=== PATIENT | male | born 1955 | race Caucasian/White ===

== ENCOUNTER 2017-12-28 08:19 | Observation (INO) | payer OTHER ==
[~2017-12-28] VITALS: Ht 172.7 cm; Wt 80.7 kg
--- NOTE | 2017-12-28 08:40 | ED NECK/BACK PAIN COMPLAINT ---
History of Present Illness General Chief Complaint: Low Back Pain/Injury Stated Complaint: SCIATIC PAIN Source: patient Exam Limitations: no limitations Vital Signs & Intake/Output Vital Signs & Intake/Output Vital Signs Date Time Temp Pulse Resp B/P B/P Pulse O2 O2 Flow FiO2 Mean Ox Delivery Rate 12/28 1607 98.3 78 18 126/64 95 Room Air 12/28 1311 98.8 66 17 132/72 99 Room Air 12/28 0824 98.3 65 18 146/86 98 Room Air Allergies Coded Allergies: NO KNOWN ALLERGIES (12/28/17) Reconcile Medications Atorvastatin Calcium 10 MG TABLET 1 TAB PO DAILY cholesterol (Reported) Lisinopril 5 MG TABLET 1 TAB PO DAILY heart (Reported) Triage Note: 62 YO MALE BIBA FROM HOME. PT STATES HE SLIPPED ON ICE 2 DAYS AGO AND NOW HAS PAIN TO R BUTTOCKS RADIATING DOWN R LEG. STATES HE TRIED TO TAKE 800MG MOTRIN WITHOUT RELIEF. DENIES HEADSTRIKE. DENIES LOC. STATES HE WAS ABLE TO WALK ON IT A DAY AGO BUT IT HAS BEEN GETTING PROGRESSIVELY WORSE. Triage Nurses Notes Reviewed? yes Onset: Abrupt Duration: getting worse Timing: recent history Radiation: buttocks Method of Injury: fall, twisted HPI: Patient is a 62-year-old male with a past medical history of hypertension who presents emergency room for concerns of a slip and fall on ice while in the standing position 3 DAYS AGO, where he states he fell to ground to the right lateral hip region, patient denies any preceding episode of lightheaded sensation or dizziness denies any head strike or neck pain states that he was able to ambulate after the event however since the event he's been complaining of gradually worsening right gluteal pain where he states that yesterday evening and today the pain was too severe to get out of bed. Patient has been taking ibuprofen with minimal relief of symptoms. Denies any extremity paresthesia bowel or bladder incontinence or saddle paresthesia abdominal pain or neck pain. Patient was brought in by ambulance due to his pain (Loyd Keating) Past History Travel History Traveled to [place] past 21 day No Medical History Any Pertinent Medical History? see below for history Neurological: NONE EENT: NONE Cardiovascular: hypertension Respiratory: NONE Gastrointestinal: NONE Hepatic: NONE Renal: NONE Musculoskeletal: NONE Psychiatric: NONE Endocrine: NONE Blood Disorders: NONE Cancer(s): NONE PRODUCTION CONTROL ANALYST/Reproductive: NONE Surgical History Surgical History: non-contributory Psychosocial History What is your primary language Mexican Tobacco Use: Never used Family History Hx Contributory? No (Loyd Keating) Review of Systems Review of Systems Constitutional: Reports: no symptoms. Eyes: Reports: no symptoms. Ears, Nose, Throat, Mouth: Reports: no symptoms. Respiratory: Reports: no symptoms. Cardiovascular: Reports: no symptoms. Gastrointestinal/Abdominal: Reports: no symptoms. Musculoskeletal: Reports: see HPI, back pain. Skin: Reports: no symptoms. Neurological/Psychological: Reports: see HPI. All Other Systems: Reviewed and Negative (Loyd Keating) Physical Exam Physical Exam General Appearance: mild distress Head: atraumatic Eyes: Bilateral: normal appearance. Ears, Nose, Throat, Mouth: hearing grossly normal Neck: normal inspection, supple, no midline tenderness Respiratory: no respiratory distress Gastrointestinal: normal bowel sounds, soft, non-tender Straight Leg Raising: Right: Pain at ____ degrees (45). Left: Pain at ____ degrees (45). Neurologic/Psych: no motor/sensory deficits, awake, alert Skin: intact, normal color Comments: Right hip noted posterior gluteal point tenderness Patient able to perform straight leg raise Right knee and ankle nontender full active range of motion Right leg dermatomes intact DTRs intact Left hip straight leg raise performed with pain to the contralateral RIGHT gluteal region Core Measures CVA/TIA Diagnosis: No (Loyd Keating) Progress Differential Diagnosis: C spine injury, carotid dissection, cauda equina syn, herniated disc, myofascial strain, pyelo/UTI, sciatica, spinal cord inj, thoracic outlet syn, T/L spine injury, ureterolithiasis Plan of Care: Orders Procedure Date/time Status Regular Diet 12/29 B Active OXYGEN SETUP (GEN) 12/28 161 Active Saline Lock 12/[address] in observation 12/28 1618 Active Vital Signs 12/28 1618 Active Activity/Ambulation 12/28 1618 Active Code Status 12/28 1618 Active Patient Data 12/28 1616 Active PT Evaluate & Treat 12/28 1414 Active URINALYSIS 12/28 1158 Complete COMPREHENSIVE METABOLIC PANEL 12/28 1158 Complete CBC WITHOUT DIFFERENTIAL 12/28 1158 Complete Current Medications Sig/Velma Start time Last Medication Dose Stop Time Status Admin Hydromorphone HCl 1 MG ONCE ONE 12/28 1200 CAN (Dilaudid) 12/28 1201 Morphine Sulfate 6 MG ONCE ONE 12/28 0945 CAN (MORPHINE SULFATE) 12/28 0946 Laboratory Tests 12/28/17 1235: Urine Color YEL, Urine Clarity CLEAR, Urine pH 6.0, Ur Specific Brewster <= 1.005 , Urine Protein NEG, Urine Ketones NEG, Urine Nitrite NEG, Urine Bilirubin NEG, Urine Urobilinogen 0.2, Ur Leukocyte Esterase NEG, Ur Microscopic EXAM NOT REQUIRED, Urine Hemoglobin NEG, Urine Glucose NEG 12/28/17 1230: Anion Gap 15, Estimated GFR > 60, BUN/Creatinine Ratio 16.7, Glucose 130 H, Calcium 10.0, Total Bilirubin 1.9 H, AST 18, ALT 11 L, Alkaline Phosphatase 76 , Total Protein 7.0, Albumin 4.4, Globulin 2.6, Albumin/Globulin Ratio 1.7, CBC w Diff NO MAN DIFF REQ, RBC 5.17, MCV 91.7, MCH 30.7, MCHC 33.5, RDW 12.4, MPV 8.4, Gran % 90.4 H, Lymphocytes % 7.5 L, Monocytes % 1.4 L, Eosinophils % 0.5 , Basophils % 0.2, Absolute Granulocytes 8.9 H, Absolute Lymphocytes 0.7 L, Absolute Monocytes 0.1, Absolute Eosinophils 0, Absolute Basophils 0 Patient had negative lumbar spine x-rays and there is no suspicion of fracture of the hips due to patient being well to tolerate weightbearing activities after the event and able to perform straight leg raise, DTRs present illness and exam findings patient has consideration of sciatica and musculoskeletal pain. Patient was neurovascularly intact to bilateral lower extremities 1020 patient was reevaluated and the patient tried to ambulate however he was too painful to get up out of bed for more milligrams of morphine were administered- 1208 after second dosing of morphine patient was still unable to get up out of bed due to severe pain to the right localized gluteal region. X-ray will be obtained blood work will be obtained. Patient will receive Dilaudid and Toradol. Although it is of my differential diagnosis of spinal abscess or discitis patient denies any IV drug use and is only complaining of right gluteal pain Patient after given by mouth Dilaudid still had no improvement of pain patient was able to sit up however due to severe pain he was unable to ambulate, MRI was administered patient has unremarkable blood work. I discussed MRI results with patient for concerns of herniated L4-L5 and L5-S1. No concerns of discitis or abscess. Due to multiple narcotic administrations and pain treatments he has intractable pain and cannot ambulate in which she is a significant fall risk, patient may require short-term rehabilitation. Diagnostic Imaging: Viewed by Me: Radiology Read, MRI. Radiology Impression: no fracture Comments: PATIENT: DEV RODRIGUEZ PRESENT AGE: 62 PATIENT ACCOUNT NO: [id number] : 53 LOCATION: [facility] ORDERING PHYSICIAN: Loyd DOMINGUEZ SERVICE DATE: 12/28/17 EXAM TYPE: MRI - MRI-LUMBAR SPINE MR LUMBAR SPINE WITHOUT IV CONTRAST CLINICAL INFORMATION: Unable to ambulate due to right gluteal pain. COMPARISON: Lumbar spine radiographs and hip radiographs performed earlier the same day. TECHNIQUE: MRI of the lumbar spine without contrast was obtained using routine sequences. FINDINGS: There are 5 nonrib-bearing lumbar-type vertebral bodies. There is mild grade 1 degenerative anterolisthesis of L2 on L3. Lumbar alignment is otherwise maintained. The vertebral body heights are preserved. There is moderate disc volume loss at L3-L4, L4-L5, and L5-S1. Disc desiccation at all lumbar levels with the exception of L1 on L2. There are Modic type I endplate signal changes at L4-L5. No additional bone marrow edema. No acute fractures. Conus terminates at the L1 level. No significant soft tissue findings. L1-L2: Disc contour is normal. No central canal stenosis and no foraminal stenosis. L2-L3: There is grade 1 degenerative anterolisthesis in the setting of moderate bilateral hypertrophic facet arthropathy. Mild narrowing of the central canal which remains patent. No significant foraminal stenosis. L3-L4: There is a diffuse annular disc bulge and there is moderate bilateral hypertrophic facet arthropathy. No significant central canal stenosis and no significant foraminal stenosis. L4-L5: There is a background annular disc bulge with a superimposed right paracentral disc protrusion that compresses the traversing right L5 nerve root within the right subarticular zone and there is moderate bilateral hypertrophic facet arthropathy. Findings in concert result in moderate central canal stenosis. L5-S1: There is a shallow central disc protrusion and there is severe bilateral hypertrophic facet arthropathy. Findings result in left subarticular zone stenosis with mild mass effect on the traversing left S1 nerve root. The central canal is patent. Far right lateral disc osteophyte protrusion likely contacts the extraforaminal right L5 nerve root. IMPRESSION: - At L4-L5, there is a right paracentral disc protrusion that compresses the traversing right L5 nerve root within the right subarticular zone and multifactorial degenerative changes result in moderate central canal stenosis. - At L5-S1, there is a shallow central disc protrusion that results in mild mass effect on the traversing left S1 nerve root and there is a far right lateral disc osteophyte protrusion that likely contacts the extraforaminal right L5 nerve root. - At L2-L3, there is grade 1 degenerative anterolisthesis in the setting of moderate bilateral hypertrophic facet arthropathy. No significant central canal stenosis nor significant foraminal stenosis at this level. DICTATED BY: Sunil Duran MD DATE/TIME DICTATED:12/28/171499 DESIGN ENGINEER:TYRA PATIENT: DEV RODRIGUEZ PRESENT AGE: 62 PATIENT ACCOUNT NO: [id number] : 53 LOCATION: [facility] ORDERING PHYSICIAN: Loyd DOMINGUEZ SERVICE DATE: 12/28/17 EXAM TYPE: RAD - XRY-HIP 2-3 VIEWS, RIGHT EXAMINATION: XR HIP, RIGHT CLINICAL INFORMATION: Right hip pain. COMPARISON: None TECHNIQUE: Two views of the right hip. FINDINGS: No fracture or dislocation. The right femoral head is well situated within the acetabulum. Normal hypertrophic changes without significant cartilage space narrowing. Partially visualized L5-S1 disc space narrowing. IMPRESSION: No acute osseous abnormalities. DICTATED BY: Joel Ochoa MD DATE/TIME DICTATED:12/28/171304 DESIGN ENGINEER:TYRA DATE/TIME TRANSCRIBED:12/28/17 / PATIENT: DEV RODRIGUEZ PRESENT AGE: 62 PATIENT ACCOUNT NO: [id number] : 53 LOCATION: ER ORDERING PHYSICIAN: Loyd DOMINGUEZ SERVICE DATE: 12/28/17 EXAM TYPE: RAD - XRY-LUMBOSACRAL SPINE 4 VIEWS EXAMINATION: XR LUMBOSACRAL SPINE CLINICAL INFORMATION: Lower back pain after fall 2 days ago. COMPARISON: None TECHNIQUE: 4 views of the lumbosacral spine were obtained. FINDINGS: No evidence of acute fracture or traumatic subluxation within the degenerated spine. Multilevel facet arthropathy. There is 0.3 cm of degenerative anterolisthesis at L2-L3. The posterior elements of L2 appear intact. There is degenerative disc space narrowing and osteophyte formation of L3-L4, L4-L5 and L5-S1. The disc space narrowing is moderate at L3-L4 and L4-L5 and [id number] at L5-S1 Degenerative subarticular sclerosis/osteophytosis at the sacroiliac joints. Atherosclerotic calcification of the aorta. Multiple phleboliths within the lower pelvis. IMPRESSION: 1. No acute findings within the lumbosacral spine. 2. Multilevel facet osteoarthritis and mild, grade 1 anterolisthesis at L2-L3. 3. 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 DICTATED BY: Andrzej Rider MD DATE/TIME DICTATED:12/28/17913 DESIGN ENGINEER:TYRA DATE/TIME TRANSCRIBED:12/28/17913 (Loyd Keating) Departure Departure Disposition: STILL A PATIENT Condition: Stable Clinical Impression Primary Impression: Intractable pain Secondary Impressions: Herniated nucleus pulposus, lumbar, Inability to ambulate due to right hip, Sciatica of right side Referrals: Cheryl Nayak MD (PCP/Family) Departure Forms: Customer Survey General Discharge Information Observation Note Spoke With: Heath Ridley MD Physician Advisor Notified: SUNIL GUO DO Place Patient In: Non-ED OBS Care Area Rationale for Observation: My rational for observation is as follows [patient requires physical therapy consultation, pain control, and possible short-term rehabilitation due to inability to ablate due to intractable pain and lumbar radiculopathy patient has a significant fall risk if discharged]. (Loyd Keating) PA/CLASS B TRUCK DRIVER Co-Sign Statement Statement: ED Attending supervision documentation- x I saw and evaluated the patient. I have also reviewed all the pertinent lab results and diagnostic results. I agree with the findings and the plan of care as documented in the PA's/[employer] B TRUCK DRIVER's documentation. Intractable sciatica [] I have reviewed the ED Record and agree with the PA's/[employer] B TRUCK DRIVER's documentation. [] Additions or exceptions (if any) to the PAs/CLASS B TRUCK DRIVER's note and plan are summarized below: [] (Teresa JEAN,Cristian)
--- NOTE | 2017-12-28 09:23 | RADIOLOGY REPORT ---
EXAMINATION: XR LUMBOSACRAL SPINE CLINICAL INFORMATION: Lower back pain after fall 2 days ago. COMPARISON: None TECHNIQUE: 4 views of the lumbosacral spine were obtained. FINDINGS: No evidence of acute fracture or traumatic subluxation within the degenerated spine. Multilevel facet arthropathy. There is 0.3 cm of degenerative anterolisthesis at L2-L3. The posterior elements of L2 appear intact. There is degenerative disc space narrowing and osteophyte formation of L3-L4, L4-L5 and L5-S1. The disc space narrowing is moderate at L3-L4 and L4-L5 and [id number] at L5-S1 Degenerative subarticular sclerosis/osteophytosis at the sacroiliac joints. Atherosclerotic calcification of the aorta. Multiple phleboliths within the lower pelvis. IMPRESSION: 1. No acute findings within the lumbosacral spine. 2. Multilevel facet osteoarthritis and mild, grade 1 anterolisthesis at L2-L3. 3. 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
[2017-12-28] MEDS ORDERED: LISINOPRIL5 M1 PO (10:11)
[2017-12-28] MEDS ORDERED: ATORVASTATIN CA10 M1 PO (10:11)
[2017-12-28 12:59] LABS: ABSOLUTE BASOPHIL COUNT 0 /CUMM (0.0-0.2); ABSOLUTE EOSINOPHIL COUNT 0 /CUMM (0.0-0.7); ABSOLUTE GRANULOCYTE CT 8.9 /CUMM (1.4-6.5); ABSOLUTE LYMPH COUNT 0.7 /CUMM (1.2-3.4); ABSOLUTE MONOCYTE COUNT 0.1 /CUMM (0.10-0.60); BASOPHIL % 0.2 % (0.0-2.0); EOSINOPHIL % 0.5 % (0-5); HEMATOCRIT 47.4 % (42-52); MEAN CORPUSCULAR HGB 30.7 PG (27.0-31.0); MEAN CORPUSCULAR HGB CONC 33.5 G/DL (33.0-37.0); MEAN CORPUSCULAR VOLUME 91.7 FL (80.0-94.0); MEAN PLATELET VOLUME 8.4 FL (7.4-10.4); PLATELET COUNT 297 /CUMM (130-400); RBC DISTRIBUTION WIDTH 12.4 % (11.5-14.5); RED BLOOD CELL CT 5.17 /CUMM (4.70-6.10); WHITE BLOOD CELL COUNT 9.8 /CUMM (4.8-10.8)
--- NOTE | 2017-12-28 13:10 | RADIOLOGY REPORT ---
EXAMINATION: XR HIP, RIGHT CLINICAL INFORMATION: Right hip pain. COMPARISON: None TECHNIQUE: Two views of the right hip. FINDINGS: No fracture or dislocation. The right femoral head is well situated within the acetabulum. Normal hypertrophic changes without significant cartilage space narrowing. Partially visualized L5-S1 disc space narrowing. IMPRESSION: No acute osseous abnormalities.
[2017-12-28 13:14] LABS: GRANULOCYTE % 90.4 % (42.2-75.2)
--- NOTE | 2017-12-28 15:19 | MRI REPORT ---
MR LUMBAR SPINE WITHOUT IV CONTRAST CLINICAL INFORMATION: Unable to ambulate due to right gluteal pain. COMPARISON: Lumbar spine radiographs and hip radiographs performed earlier the same day. TECHNIQUE: MRI of the lumbar spine without contrast was obtained using routine sequences. FINDINGS: There are 5 nonrib-bearing lumbar-type vertebral bodies. There is mild grade 1 degenerative anterolisthesis of L2 on L3. Lumbar alignment is otherwise maintained. The vertebral body heights are preserved. There is moderate disc volume loss at L3-L4, L4-L5, and L5-S1. Disc desiccation at all lumbar levels with the exception of L1 on L2. There are Modic type I endplate signal changes at L4-L5. No additional bone marrow edema. No acute fractures. Conus terminates at the L1 level. No significant soft tissue findings. L1-L2: Disc contour is normal. No central canal stenosis and no foraminal stenosis. L2-L3: There is grade 1 degenerative anterolisthesis in the setting of moderate bilateral hypertrophic facet arthropathy. Mild narrowing of the central canal which remains patent. No significant foraminal stenosis. L3-L4: There is a diffuse annular disc bulge and there is moderate bilateral hypertrophic facet arthropathy. No significant central canal stenosis and no significant foraminal stenosis. L4-L5: There is a background annular disc bulge with a superimposed right paracentral disc protrusion that compresses the traversing right L5 nerve root within the right subarticular zone and there is moderate bilateral hypertrophic facet arthropathy. Findings in concert result in moderate central canal stenosis. L5-S1: There is a shallow central disc protrusion and there is severe bilateral hypertrophic facet arthropathy. Findings result in left subarticular zone stenosis with mild mass effect on the traversing left S1 nerve root. The central canal is patent. Far right lateral disc osteophyte protrusion likely contacts the extraforaminal right L5 nerve root. IMPRESSION: - At L4-L5, there is a right paracentral disc protrusion that compresses the traversing right L5 nerve root within the right subarticular zone and multifactorial degenerative changes result in moderate central canal stenosis. - At L5-S1, there is a shallow central disc protrusion that results in mild mass effect on the traversing left S1 nerve root and there is a far right lateral disc osteophyte protrusion that likely contacts the extraforaminal right L5 nerve root. - At L2-L3, there is grade 1 degenerative anterolisthesis in the setting of moderate bilateral hypertrophic facet arthropathy. No significant central canal stenosis nor significant foraminal stenosis at this level.
--- NOTE | 2017-12-28 16:47 | History & Physical ---
Dragan JEAN,[facility] 12/28/17 0336: General Information and HPI MD Statement: I have seen and personally examined DEV RODRIGUEZ and documented this H&P. The patient is a 62 year old M who presented with a patient stated chief complaint of [severe back pain]. Source of Information: patient Exam Limitations: no limitations History of Present Illness: 62-year-old male with a past medical history of hypertension, hyperlipidemia who was BIBA to the ED for evaluation of right hip and back pain. According to the patient around 3 days ago he tripped and fell on ice and landed on his right hip. He denies any symptoms of lightheadedness, dizziness, chest pain, palpitations or any other associated symptoms prior to the fall. Denies hitting his head. Since the fall he has been experiencing progressively worsening pain of his right hip that radiates to his groin. He describes his pain as a piercing knife like, 13/10 in severity, aggravated with movement, relieved with lying in a stationary position, associated with some numbess in his right buttock. He has taken OTC ibuprofen (4 tablets, three times a day) without any significant relief in symptoms. He states that last night he was unable to get out of his bed due to severe pain. His pain seems to be also aggravated with raising his left leg. He mentions that 15-18 years ago he had problems with his back. He saw a doctor back then who prescribed him some pain meds and told him to do some exercises which resolved his pain. Allergies/Medications Allergies: Coded Allergies: NO KNOWN ALLERGIES (12/28/17) Home Med list Atorvastatin Calcium 10 MG TABLET 1 TAB PO DAILY cholesterol (Reported) Cyclobenzaprine HCl 5 MG TABLET 1 TAB PO Q8P Muscle Pain Cyclobenzaprine HCl 5 MG TABLET 1 TAB PO Q8P Muscle Pain Diclofenac Potassium 50 MG TABLET 1 TAB PO TIDPRN Back Pain Lisinopril 5 MG TABLET 1 TAB PO DAILY heart (Reported) Past History Travel History Traveled to [place] past 21 day No Medical History Neurological: NONE EENT: NONE Cardiovascular: hypertension Respiratory: NONE Gastrointestinal: NONE Hepatic: NONE Renal: NONE Musculoskeletal: NONE Psychiatric: NONE Endocrine: NONE Blood Disorders: NONE Cancer(s): NONE 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 EENTM: Reports: no symptoms. Cardiovascular: Denies: chest pain, palpitations. Respiratory: Denies: short of breath. GI: Reports: no symptoms. Genitourinary: Reports: no symptoms. Musculoskeletal: Reports: back pain, joint pain, muscle pain. Skin: Reports: no symptoms. Neurological/Psychological: Reports: numbness. Denies: paresthesia, tingling. Exam & Diagnostic Data Last 24 Hrs of Vital Signs/I&O Vital Signs Date Time Temp Pulse Resp B/P B/P Pulse O2 O2 Flow FiO2 Mean Ox Delivery Rate 12/28 1607 98.3 78 18 126/64 95 Room Air 12/28 1311 98.8 66 17 132/72 99 Room Air 12/28 0824 98.3 65 18 146/86 98 Room Air Intake & Output 12/28 1600 12/28 0800 12/28 0000 Intake Total 0 Output Total Balance 0 Intake, Oral 0 Patient 170 lb Weight Weight Reported by Patient Measurement Method Physical Exam General Appearance Alert, Oriented X3, Cooperative, Mild Distress Skin rash on right knee Skin Temp/Moisture Exam: Warm/Dry HEENT Atraumatic Cardiovascular Normal S1, Normal S2, No Murmurs Lungs Clear to Auscultation, Normal Air Movement Abdomen Soft, No Tenderness Neurological Normal Speech, Strength at 5/5 X4 Ext, Normal Tone, Sensation Intact, Reflexes 2+ Extremities No Edema Rectal No Fissures, No Hemorrhoids Diagnostic Data Other Results - At L4-L5, there is a right paracentral disc protrusion that compresses the traversing right L5 nerve root within the right subarticular zone and multifactorial degenerative changes result in moderate central canal stenosis. - At L5-S1, there is a shallow central disc protrusion that results in mild mass effect on the traversing left S1 nerve root and there is a far right lateral disc osteophyte protrusion that likely contacts the extraforaminal right L5 nerve root. - At L2-L3, there is grade 1 degenerative anterolisthesis in the setting of moderate bilateral hypertrophic facet arthropathy. No significant central canal stenosis nor significant foraminal stenosis at this level. Assessment/Plan Assessment: 62-year-old male with a past medical history of hypertension, hyperlipidemia who was BIBA to the ED for evaluation of right hip and back pain. Assessment: 1. Mechanical Fall 2. Right L5 nerve root compression secondary to right paracentral disc protrusion 3. History of Hypertension and Hyperlipidemia 4. Elevated total bilirubin Plan: * Admit to the general medicine floor. * Pain control with diclofenac mild, moderate with percocet and severe with IV morphine. * PT eval in am. * Diazepam 5mg TID to relieve muscular spasms. * His total bilirubin is elevated. Unclear at this time. Will repeat his labs at a later time to trend. * Continue home medications: Lisinopril and Atorvastatin * Diet: Regular * DVT Prophylaxis: SC Lovenox * Code: Full Code As Ranked By This Provider Problem List: 1. Intractable pain Observation Initial Note - I have personally examined DEV RODRIGUEZ on 12/29/17 at 0829. The disposition of DEV RODRIGUEZ is uncertain at this time and before a determination can be made, he requires a period of observation for the following reasons [] Core Measures/Misc (06/28) Acute Coronary Syndrome ACS Diagnosis: No Congestive Heart Failure Congestive Heart Failure Diagnosis No Cerebrovascular Accident CVA/TIA Diagnosis: No VTE (View Protocol) VTE Risk Factors Age>40 No Mechanical VTE Prophylaxis d/t N/A MechProphylax Ordered No VTE Pharm Prophylaxis d/t NA PharmProphylax ordered Sepsis (View protocol) Sepsis Present: No RidleyShanice rojasnubia 12/28/17 1655: Attending MD Review Statement Attending Statement Attending MD Statement: examined this patient, discuss w/resident/PA/CREPE BOX TENDER, agreed w/resident/PA/CREPE BOX TENDER, discussed with family, reviewed EMR data (avail), discussed with case mgmt Attending Assessment/Plan: Pt seen and examined in the ER. D/w pt and his daughters at bedside the care plan. Pt being placed in observation for acute back pain that started after he slipped and fell on ice 3 days ago . pt started having rt hip pain and it got worse to the point where he was unable to ambulate. Pt was brought to the ER and was given morphine iv and dilaudid po without much relief. Pt had Lumbar Spine MRI done which showed some disc protrusion with L5 nerve root compression. Xrays done of the hip showed no fractures. Pt at baseline is an active adult and does have h/o rt side sciatica. He says last time it acted up was 1 year ago and he routinely does not use any pain meds. We will observe the patinet on genMaximus and will start him on muscle relaxants and pain meds. Will put him on flexeril 5 mg tid and will start him on morphine iv prn for pain control. Will get PT consult and see how he does. Oliverio JEAN,[facility] 12/28/17 1731: Resident Review Statement Resident Statement: examined this patient, discussed with spring internship, agreed with spring internship Other Findings: The patient is a 62-year-old man with a past medical history of hypertension, hyperlipidemia and sciatica backpain 15 years ago who was BIBA to the ED for evaluation of right hip and back pain. Patient slipped on ice 3 days ago and fell on ice landing on his right hip. He denies any preceding chest pain or lightheadedness, his pain is knife-like, progressively worsening and radiates down the back of his leg to the foot and also anteriorly to the left hip and aggravated by movements. No relief with OTC ibuprofen. No bowel or urinary incontinence. No limb weakness or abnormal sensation. He mentions that 15-18 years ago he had problems with his back. He saw a doctor back then who prescribed him some pain meds and told him to do some exercises which resolved his pain. Labs at admission unremarkable apart from total bilirubin of 1.9 and glucose 130 mg/dl. Imaging on admission: MRI lumbar spine shows L4-L5-S1 nerve root compression.L2-L3, grade 1 degenerative anterolisthesis in the setting of moderate bilateral hypertrophic facet arthropathy. No significant central canal stenosis nor significant foraminal stenosis at this level. Physical exam at presentation General Appearance Alert, Oriented X3, Cooperative, Mild Distress Skin rash on right knee Skin Temp/Moisture Exam: Warm/Dry HEENT Atraumatic Cardiovascular Normal S1, Normal S2, No Murmurs Lungs Clear to Auscultation, Normal Air Movement Abdomen Soft, No Tenderness Neurological Normal Speech, Strength at 5/5 X4 Ext, Normal Tone, Sensation Intact, Reflexes 2+ in all limbs Extremities No Edema Rectal: Normal rectal tone, no Fissures, No Hemorrhoids Assessment 1. Lumbar spinal radiculopathy 2. Hypertension 3. Hyperbilirubinemia Plan * Place in observation in Gen Med * PO diclofenac 50 mg Q 8 hrs, PO Percocet 1 tab PO Q 6 hrs prn * IV morphine 4 mg Q 4 hrs prn for severe pain * PO diazepam 5 mg PO TID * PT consult in AM * Fractionate bilirubin and trend * add on Hba1c * Continue home medication lisinopril 5 mg daily * SC lovenox 40 mg daily * Patient is full code
--- NOTE | 2017-12-28 18:38 | PN- Student ---
Subjective Subjective: Patient is a 62 y/o male who was brought in for the evaluation of severe back pain. 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 Roughly three days ago, patient sustained a fall on some frozen steps landing on his right hip. Around 11pm that night patient has been experiencing worsening pain that radiates to his groin/buttock. Patient reports his pain 13/10 with a stabbing quality. Condition is exacerbated with movement, or when raising his left leg. In addition, his pain is relieved when lying still. Patient has also taken Motrin & Ibuprofen without any improvement. Patient denies hitting his head, shortness of breath or chest pain. In addition, roughly 15-18 years ago, patient had a problem with his back, however saw a Doctor and his symptoms dissipated. 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 EENTM: Reports: no symptoms. Cardiovascular: Denies: chest pain, palpitations. Respiratory: Denies: short of breath. GI: Reports: no symptoms. Genitourinary: Reports: no symptoms. Musculoskeletal: Reports: back pain, joint pain, muscle pain. Skin: Reports: no symptoms. Neurological/Psychological: Reports: numbness. Denies: paresthesia, tingling. Objective Results Results: Vital Signs Date Time Temp Pulse Resp B/P B/P Pulse O2 O2 Flow FiO2 Mean Ox Delivery Rate 12/29 0521 97.7 73 20 128/70 95 Room Air 12/28 2232 97.9 90 20 100/80 95 Room Air 12/28 1607 98.3 78 18 126/64 95 Room Air 12/28 1311 98.8 66 17 132/72 99 Room Air Laboratory Tests 12/28/17 1235: Urine Color YEL, Urine Clarity CLEAR, Urine pH 6.0, Ur Specific [place] <= 1.005 , Urine Protein NEG, Urine Ketones NEG, Urine Nitrite NEG, Urine Bilirubin NEG, Urine Urobilinogen 0.2, Ur Leukocyte Esterase NEG, Ur Microscopic EXAM NOT REQUIRED, Urine Hemoglobin NEG, Urine Glucose NEG 12/28/17 1230: Anion Gap 15, Estimated GFR > 60, BUN/Creatinine Ratio 16.7, Glucose 130 H, Hemoglobin A1c 5.0, Calcium 10.0, Total Bilirubin 1.9 H, AST 18, ALT 11 L, Alkaline Phosphatase 76, Total Protein 7.0, Albumin 4.4, Globulin 2.6, Albumin/ Globulin Ratio 1.7, CBC w Diff NO MAN DIFF REQ, RBC 5.17, MCV 91.7, MCH 30.7, MCHC 33.5, RDW 12.4, MPV 8.4, Gran % 90.4 H, Lymphocytes % 7.5 L, Monocytes % 1.4 L, Eosinophils % 0.5, Basophils % 0.2, Absolute Granulocytes 8.9 H, Absolute Lymphocytes 0.7 L, Absolute Monocytes 0.1, Absolute Eosinophils 0, Absolute Basophils 0 Physical Exam General Appearance Alert, Oriented X3, Cooperative, Mild Distress Skin rash on right knee Skin Temp/Moisture Exam: Warm/Dry HEENT Atraumatic Cardiovascular Normal S1, Normal S2, No Murmurs Lungs Clear to Auscultation, Normal Air Movement Abdomen Soft, No Tenderness Neurological Normal Speech, Strength at 5/5 X4 Ext, Normal Tone, Sensation Intact, Reflexes 2+ Extremities No Edema Rectal No Fissures, No Hemorrhoids Diagnostic Data Other Results - At L4-L5, there is a right paracentral disc protrusion that compresses the traversing right L5 nerve root within the right subarticular zone and multifactorial degenerative changes result in moderate central canal stenosis. - At L5-S1, there is a shallow central disc protrusion that results in mild mass effect on the traversing left S1 nerve root and there is a far right lateral disc osteophyte protrusion that likely contacts the extraforaminal right L5 nerve root. - At L2-L3, there is grade 1 degenerative anterolisthesis in the setting of moderate bilateral hypertrophic facet arthropathy. No significant central canal stenosis nor significant foraminal stenosis at this level. Assessment/Plan Assessment: Patient is a 62 y/o male who was brought in for the evaluation of severe back pain. Plan: -Will admit patient to general medicine floor. -Offer pain medications for management of pain. IV morphone, percocet and diclofenac. -Diazepam, Lisinopril and Atorvastatin -Patient is a full code
[2017-12-28 22:32] VITALS: BP 100/80
[2017-12-29 05:21] VITALS: BP 128/70
--- NOTE | 2017-12-29 08:29 | PN-Observation ---
Dragan JEAN,[facility] 12/29/17 0829: Observation Note Observation Note _ I have personally examined DEV RODRIGUEZ. him disposition is uncertain at this time. Before a determination can be made, he requires continued observation for the following reasons [no longer further observation. Stable to be discharged today]. Assessment/Plan Medical Assessment: 62-year-old male with a past medical history of hypertension, hyperlipidemia who was BIBA to the ED for evaluation of right hip and back pain. Assessment: 1. Mechanical Fall 2. Right L5 nerve root compression secondary to right paracentral disc protrusion 3. History of Hypertension and Hyperlipidemia 4. Elevated total bilirubin Plan: * Stable to be discharged. * Pain control with diclofenac and Flexeril for muscular spasms as needed, on discharge * He worked well with PT. He can be safely discharged home. * Continue home medications: Lisinopril and Atorvastatin * Diet: Regular * DVT Prophylaxis: SC Lovenox * Code: Full Code Problem List: 1. Intractable pain Subjective Follow-up For: Back and Hip Pain Subjective: Patient was seen and examined at bedside. He states that since 10pm last night, he has been pain free. he is able to walk and move around without any pain or problem. Does not offer any complaint. Review of Systems Constitutional: Reports: no symptoms. Objective Last 24 Hrs of Vital Signs/I&O Vital Signs Date Time Temp Pulse Resp B/P B/P Pulse O2 O2 Flow FiO2 Mean Ox Delivery Rate 12/29 0956 96 122/80 12/29 0521 97.7 73 20 128/70 95 Room Air 12/28 2232 97.9 90 20 100/80 95 Room Air Intake & Output 12/29 1600 12/29 0800 12/29 0000 Intake Total 500 500 Output Total Balance 500 500 Intake, Oral 500 500 Patient 178 lb 170 lb Weight Weight Reported by Patient Measurement Method Physical Exam General Appearance: Alert, Oriented X3, Cooperative, No Acute Distress Skin: No Rashes, No Breakdown Skin Temp/Moisture Exam: Warm/Dry Sepsis Skin Exam (color): Normal for Ethnicity HEENT: Atraumatic Cardiovascular: Normal S1, Normal S2, No Murmurs Lungs: Clear to Auscultation, Normal Air Movement Abdomen: Soft, No Tenderness Neurological: Normal Speech Extremities: No Edema Emilio Rodríguez 12/29/17 1225: Attending Addendum Attending Brief Note Patient did not c/o back pain and says he is feeling much better with flexeril and meds. Patient is medcially stbale for discharge and needs to follow up with PCP in few days of discharge.
[2017-12-29 09:56] VITALS: BP 122/80
[2017-12-29] MEDS ORDERED: CYCLOBENZAPRINE5 M2 PO ×3 (10:01→10:44)
--- NOTE | 2017-12-29 10:02 | Patient Discharge Instructions ---
Discharge Instructions General Discharge Information You were seen/treated for: Back and Hip Pain Special Instructions: Please follow up with your PCP within one week of discharge. Diet Continue normal diet: Yes Recommended Diet: Heart Healthy Activity Full Activity/No Limits: Yes Acute Coronary Syndrome Inclusion Criteria At DC or during hospital stay patient has or had the following: ACS DIAGNOSIS No Discharge Core Measures Meds if any: Prescribed or Continued at Discharge Meds if any: NOT Prescribed or Continued at Discharge Congestive Heart Failure Inclusion Criteria At DC or during hospital stay patient has or had the following: CHF DIAGNOSIS No Discharge Core Measures Meds if any: Prescribed or Continued at Discharge Meds if any: NOT Prescribed or Continued at Discharge Cerebrovascular accident Inclusion Criteria At DC or during hospital stay patient has or had the following: CVA/TIA Diagnosis No Discharge Core Measures Meds if any: Prescribed or Continued at Discharge Meds if any: NOT Prescribed or Continued at Discharge Venous thromboembolism Inclusion Criteria VTE Diagnosis No VTE Type NONE VTE Confirmed by (Test) NONE Discharge Core Measures - Per Current guidelines, there needs to be overlap - treatment for the first 5 days of Warfarin therapy. - If discharged on Warfarin prior to 5 days of - overlap therapy, the patient will need to be - assessed for post discharge needs including - *Post discharge parental anticoagulation - *Warfarin and/or parental anticoagulation education - *Follow up date to check INR post discharge At least 5 days overlap therapy as Inpatient No Meds if any: Prescribed or Continued at Discharge Note: Overlap Therapy is Warfarin and Anticoagulant Meds if any: NOT Prescribed or Continued at Discharge
[2017-12-29] MEDS ORDERED: DICLOFENAC POTA50 M1 PO (10:44)
== END 2017-12-29 12:13 ==
LOC: ERH 08:19 → 2NA 16:18 → ERHI 16:18 → ENRESERV 16:59 → ENTRNSPT 17:31 → EDTRNSPT 17:47 → EDTRNSPTSTS 17:47 → 2NA 17:54 → CMPTRNSPT 18:10 → 2NA 12-29 09:04 → ENPENDDIS 12-29 10:50 → ENTRNSPT 12-29 11:58 → EDTRNSPT 12-29 12:09 → EDTRNSPTSTS 12-29 12:09 → 2NA 12-29 12:13 → CMPTRNSPT 12-29 12:13
PROVIDERS: Physician Assistant
DX: M51.26 Other intervertebral disc displacement, lumbar region (principal); M54.16 Radiculopathy, lumbar region; I10 Essential (primary) hypertension; E78.5 Hyperlipidemia, unspecified; E80.6 Other disorders of bilirubin metabolism; M25.551 Pain in right hip; W18.30XA Fall on same level, unspecified, initial encounter; Y93.29 Activity, other involving ice and snow; Y92.9 Unspecified place or not applicable
CPT/HCPCS: 6030; 72148; 36592; 72110; 73502-RT; 81003; 96372; 96374; 96375; 97116-GP; 97161-GP; G0378; J1650; J1885